=== PATIENT | female | born 1955 | race Caucasian/White ===

== ENCOUNTER 2017-05-05 11:58 | Emergency (ER) | payer OTHER ==
[2017-05-05] MEDS ORDERED: DEXAMETHASONE 10 MG/ML VIAL PO STA (12:21)
--- NOTE | 2017-05-05 12:26 | ED Physician Documentation ---
PD HPI BACK PAIN - Stated complaint Stated Complaint: BILAT LEG PX - Chief complaint Chief Complaint: Back Pain - History obtained from History obtained from: Patient, Family - History of Present Illness Timing - onset: How many months ago (10) Timing - duration: Months (10) Timing - details: Abrupt onset, Still present Location: Lower Quality: Pain, Sharp Associated symptoms: No: Fever, Weakness, Numbness, Incontinent of urine, Unable to urinate, Hematuria, Incontinent of stool Improves with: Rest, Position Worsened by: Movement Similar symptoms before: Diagnosis (sciatica) Recently seen: Not recently seen - Additional information Additional information: 61-year-old female has had symptoms of pain down the backside of both of her legs for the past 10 months. She has been on some Vicodin previously she has been on some gabapentin she feels that she is not having any improvement in her symptoms and she is a bit frustrated. She has been to physical therapy. She has not had any advanced imaging. Review of Systems Constitutional: denies: Fever Eyes: denies: Decreased vision Ears: denies: Ear pain Nose: denies: Congestion Throat: denies: Sore throat Cardiac: denies: Chest pain / pressure Respiratory: denies: Dyspnea, Cough GI: denies: Abdominal Pain, Nausea, Vomiting : denies: Dysuria, Frequency Skin: denies: Rash Musculoskeletal: reports: Extremity pain. 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 HEENT: Myringotomy (tubes) - Present Medications Home Medications: Ambulatory Orders Medication Instructions Recorded Confirmed Calcium Carbonate/Vitamin D3 2 tab ORAL DAILY 10/06/14 03/26/15 [Calcium + Vitamin D Tablet] Escitalopram Oxalate [Lexapro] 10 mg ORAL DAILY 10/06/14 03/26/15 Levothyroxine [Synthroid] 50 mcg ORAL DAILY 10/06/14 03/26/15 Meloxicam [Mobic] 15 mg ORAL DAILY 10/06/14 03/26/15 Aspirin [Aspir 81] 81 mg PO DAILY 03/26/15 03/26/15 Fexofenadine HCl 1 tab PO DAILY 03/26/15 03/26/15 Simvastatin 10 mg PO DAILY 03/26/15 03/26/15 Gabapentin 100 mg PO TID 05/05/17 - Allergies Allergies/Adverse Reactions: Allergies Allergy/AdvReac Type Severity Reaction Status Date / Time Penicillins Allergy Rash Verified 05/05/17 12:07 - Social History Does the pt smoke?: No Smoking Status: Never smoker Does the pt drink ETOH?: Yes Does the pt have substance abuse?: No - Immunizations Immunizations are current?: Yes - POLST Patient has POLST: No PD ED PE NORMAL - Vitals Vital signs reviewed: Yes (Hypertensive) - General General: Alert and oriented X 3, No acute distress, Well developed/nourished - HEENT HEENT: Atraumatic, PERRL, EOMI - Neck Neck: Supple, no meningeal sign - Respiratory Respiratory: No respiratory distress - Back Back: No CVA TTP, No spinal TTP - Derm Derm: Normal color, Warm and dry, No rash - Extremities Extremities: No deformity, No edema - Neuro Neuro: No motor deficit, No sensory deficit Eye Opening: Spontaneous Motor: Obeys Commands Verbal: Oriented GCS Score: 15 - Psych Psych: Normal mood, Normal affect Results - Vitals Vitals: Vital Signs - 24 hr 05/05/17 12:03 Temperature 36.6 C Heart Rate 87 Respiratory 16 Rate Blood Pressure 184/110 H O2 Saturation 100 Oxygen O2 Source Room air PD MEDICAL DECISION MAKING - ED course Complexity details: reviewed old records, considered differential, d/w patient, d/w family ED course: 61-year-old female with a history of sciatica has pain down the back of both of her legs that she is frustrated with and she wants some steroid. She is administered dexamethasone 10 mg orally. I discussed with her the natural history of sciatica and disc disease and spine disease and recommended that she get an MRI done of her back with the thought that she may need epidural steroid injection.I have encouraged her to continue her physical therapy. Departure - Departure Disposition: 01 Home, Self Care Clinical Impression: Sciatica Qualifiers: Laterality: bilateral Qualified Code(s): M54.31 - Sciatica, right side; M54.32 - Sciatica, left side; M54.32 - Sciatica, left side Instructions: ED Sciatica Follow-Up: Nanette Jefferson MD [Primary Care Provider] - Comments: Talk to your primary care doctor about getting an MRI of your back. Today in the Emergency Department your blood pressure was elevated. This can happen from the stress of the visit itself, from a current illness or circumstance or from uncontrolled hypertension. If you take blood pressure medications take your usual mediations, have your blood pressure re-checked in an appropriate setting and follow up any elevation with your primary care doctor.
[2017-05-05 12:33] VITALS: BP 174/98
== END 2017-05-05 12:32 | disposition home or self-care (01) ==
LOC: ED 11:58
DX: M54.31 Sciatica, right side (principal); M54.32 Sciatica, left side; R03.0 Elevated blood-pressure reading, without diagnosis of hypertension; E78.00 Pure hypercholesterolemia, unspecified
CPT/HCPCS: 99283

== ENCOUNTER 2017-05-26 14:57 | Outpatient (CLI) | payer OTHER ==
--- NOTE | 2017-05-27 12:48 | MRI Report ---
EXAM: MRI LUMBAR SPINE WITHOUT CONTRAST EXAM DATE: 05/26/2017 03:44 PM. CLINICAL HISTORY: Lumbar radiculopathy. Low back pain radiating to the posterior thighs and knees. COMPARISON: None. TECHNIQUE: Multiplanar, multisequence T1-weighted and fluid-sensitive sequences of the lumbar spine f rom T12 to S1 without contrast. Other: None. FINDINGS: Spinal Cord: The conus terminates at L1. The conus medullaris and cauda equina are unremarkable. Alignment: No scoliosis or spondylolisthesis. Bone Marrow: Five [id number] lumbar vertebral bodies are assumed. No gross fractures or bone les ions. No bone marrow edema. Disk Levels/Facets: T11-t12: Unremarkable. T12-l1: Unremarkable. L1-L2: Unremarkable. L2-L3: A small left foraminal area protrusion results in minimal foraminal narrowing. L3-L4: Mild bilateral facet osteoarthritis and foraminal area protrusions result in mild bilateral fo raminal narrowing. L4-L5: The disk is desiccated with mild height loss. A broad-based disk bulge, severe ligamentum flav um hypertrophy, and severe facet hypertrophy result in moderate spinal canal, mild right foraminal, a nd severe left foraminal narrowing. The facet joints are mildly widened and contain moderate effusion s. L5-S1: Mild bilateral facet osteoarthritis has no neurologic consequence. Incidentally noted are extr aarticular peripheral synovial cysts. Musculature: Normal. No edema or fatty atrophy. Other: The partially visualized retroperitoneum is unremarkable. IMPRESSION: 1. Mild bilateral foraminal narrowing at L3-L4 due to disk and posterior element degenerative changes . 2. Moderate spinal canal, mild right foraminal, and severe left foraminal narrowing at L4-L5 due to d isk and posterior element degenerative changes. Comment: The following findings are so common in adults without low back pain that while we report th eir presence, they must be interpreted with caution and in the context of the clinical situation. (Re michi Cummings et al, Spine 2001) Prevalence of findings in patients without low back pain: Disk degeneration (any evidence): 92% Disk desiccation/T2 signal loss: 83% Disk height loss: 56% Disk bulge: 64% Disk protrusion: 32% Annular tear/high intensity zone: 38% [facility] Referring Provider Line: [phone] SITE ID: [id number]
== END 2017-05-26 14:58 | disposition home or self-care (01) ==
LOC: DI 14:57
PROVIDERS: ATTEND Physician Assistant Medical
DX: M51.26 Other intervertebral disc displacement, lumbar region (principal); M51.36 Other intervertebral disc degeneration, lumbar region; M47.896 Other spondylosis, lumbar region
CPT/HCPCS: 72148

== ENCOUNTER 2019-02-21 15:57 | Emergency (ER) | payer OTHER ==
[2019-02-21 16:04] VITALS: BP 141/67
--- NOTE | 2019-02-21 16:16 | ED Physician Documentation ---
History of Present Illness - Stated complaint Stated Complaint: LT FOOT INJURY - Chief complaint Chief Complaint: Ext Problem - History obtained from History obtained from: Patient - History of Present Illness Timing: How many days ago (5) Pain level max: 4 Pain level now: 4 - Additonal information Additional information: 63-year-old female states that she was [place] [employer] [place] earlier today, had an x- ray of her left foot after an injury approximately 5 days ago. She states that they told her left fourth toe is dislocated in her left fifth toe is fractured. She was sent here to have her toe "reduced". 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 HEENT: Myringotomy (tubes) - Present Medications Home Medications: Ambulatory Orders Medication Instructions Recorded Confirmed Calcium Carbonate/Vitamin D3 2 tab ORAL DAILY 10/06/14 03/26/15 [Calcium + Vitamin D Tablet] Escitalopram Oxalate [Lexapro] 10 mg ORAL DAILY 10/06/14 03/26/15 Levothyroxine [Synthroid] 50 mcg ORAL DAILY 10/06/14 03/26/15 Meloxicam [Mobic] 15 mg ORAL DAILY 10/06/14 03/26/15 Aspirin [Aspir 81] 81 mg PO DAILY 03/26/15 03/26/15 Fexofenadine HCl 1 tab PO DAILY 03/26/15 03/26/15 Simvastatin 10 mg PO DAILY 03/26/15 03/26/15 Gabapentin 100 mg PO TID 05/05/17 - Allergies Allergies/Adverse Reactions: Allergies Allergy/AdvReac Type Severity Reaction Status Date / Time Penicillins Allergy Rash Verified 02/21/19 16:00 - Social History Does the pt smoke?: No Smoking Status: Never smoker Does the pt drink ETOH?: Yes Does the pt have substance abuse?: No - Immunizations Immunizations are current?: Yes - POLST Patient has POLST: No PD ED PE NORMAL - Vitals Vital signs reviewed: Yes - General General: Alert and oriented X 3, No acute distress - HEENT HEENT: Moist mucous membranes - Neck Neck: Supple, no meningeal sign - Derm Derm: Warm and dry - Extremities Extremities: Other (L foot - Ecchymosis and swelling to the left fifth toe. There is mild deformity to the left fourth toe. Neurovascular intact. Also has mild bruising over the dorsum of the foot.) - Neuro Neuro: Alert and oriented X 3 Results - Vitals Vitals: Vital Signs - 24 hr 02/21/19 16:00 Temperature 36.8 C Heart Rate 80 Respiratory 14 Rate Blood Pressure 141/67 H O2 Saturation 98 Oxygen O2 Source Room air - Rads (name of study) L foot xray Radiology: Prelim report reviewed, EMP read contemporaneously, See rad report (Acute horizontal fracture seen at the fifth proximal phalanx through the meta- epiphysis with mild lateral angulation. Adjacent soft tissue swelling. ) Procedures - Reduction Body part reduced: Left, Toe Fracture or dislocation: Dislocation Reduction aftercare: NV intact, Xray confirms reduction, Patient tolerated well PD MEDICAL DECISION MAKING - ED course Complexity details: reviewed results, re-evaluated patient, considered differential, d/w patient ED course: Patient presents to the emergency department with a fractured left fifth toe. She also had a dislocated fourth toe that was reduced upon arrival to the emergency department. Tolerated well. No further dislocation present on x-ray. Placed in a postop shoe for comfort. Patient counseled regarding signs and symptoms for which I believe and urgent re-evaluation would be necessary. Patient with good understanding of and agreement to plan and is comfortable going home at this time This document was made in part using voice recognition software. While efforts are made to proofread this document, sound alike and grammatical errors may occur. Departure - Departure Disposition: 01 Home, Self Care Clinical Impression: Fracture of fifth toe, left, closed Qualifiers: Encounter type: initial encounter Qualified Code(s): S92.502A - Displaced unspecified fracture of left lesser toe(s), initial encounter for closed fracture Dislocation of toe, closed Qualifiers: Encounter type: initial encounter Laterality: left Qualified Code(s): S93.105A - Unspecified dislocation of left toe(s), initial encounter Condition: Good Instructions: ED Dislocation Toe, ED Fx Toe Closed Follow-Up: Potswald,Kasandra D, ANDREA [Primary Care Provider] - Within 1 week Comments: Return if you worsen. Wear the postop shoe for comfort. Follow-up with your doctor in 1 week for repeat evaluation. Discharge Date/Time: 02/21/19 17:09
--- NOTE | 2019-02-21 17:01 | XRAY Report ---
Reason: pain Procedure Date: 02/21/2019 Accession Number: [id number] / [id number] Procedure: XR - Foot 3 View LT CPT Code: Final Report FULL RESULT: EXAM: LEFT FOOT RADIOGRAPHY EXAM DATE: 02/21/2019 04:29 PM. CLINICAL HISTORY: Left foot pain. COMPARISON: None. TECHNIQUE: 3 views. FINDINGS: Bones: Acute horizontal fracture seen at the fifth proximal phalanx through the meta-epiphysis with mild lateral angulation. Adjacent soft tissue swelling. Joints: No dislocation. IMPRESSION: Acute horizontal fracture seen at the fifth proximal phalanx through the meta-epiphysis with mild lateral angulation. Adjacent soft tissue swelling. [facility]
== END 2019-02-21 17:09 | disposition home or self-care (01) ==
LOC: ED 15:57
DX: S92.512A Displaced fracture of proximal phalanx of left lesser toe(s), initial encounter for closed fracture (principal); S93.105A Unspecified dislocation of left toe(s), initial encounter; X58.XXXA Exposure to other specified factors, initial encounter; Z79.82 Long term (current) use of aspirin
CPT/HCPCS: 28515

== ENCOUNTER 2019-09-19 11:36 | Emergency (ER) | payer OTHER ==
[2019-09-19] MEDS ORDERED: TETANUS/DIPHTHERIA/PERTUSSIS 0.5 ML SYRINGE IM ONE (12:08)
--- NOTE | 2019-09-19 12:18 | ED Physician Documentation ---
PD HPI UPPER EXT INJURY - Stated complaint Stated Complaint: LT ARM LAC - Chief complaint Chief Complaint: Laceration - History obtained from History obtained from: Patient (She accidentally stabbed her left, nondominant forearm while opening a box with a razor at home just prior to arrival. 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 HEENT: Myringotomy (tubes) - Present Medications Home Medications: Ambulatory Orders Medication Instructions Recorded Confirmed Calcium Carbonate/Vitamin D3 2 tab ORAL DAILY 10/06/14 03/26/15 [Calcium + Vitamin D Tablet] Escitalopram Oxalate [Lexapro] 10 mg ORAL DAILY 10/06/14 03/26/15 Levothyroxine [Synthroid] 50 mcg ORAL DAILY 10/06/14 03/26/15 Meloxicam [Mobic] 15 mg ORAL DAILY 10/06/14 03/26/15 Aspirin [Aspir 81] 81 mg PO DAILY 03/26/15 03/26/15 Fexofenadine HCl 1 tab PO DAILY 03/26/15 03/26/15 Simvastatin 10 mg PO DAILY 03/26/15 03/26/15 Gabapentin 100 mg PO TID 05/05/17 - Allergies Allergies/Adverse Reactions: Allergies Allergy/AdvReac Type Severity Reaction Status Date / Time Penicillins Allergy Rash Verified 09/19/19 11:49 - Social History Does the pt smoke?: No Smoking Status: Never smoker Does the pt drink ETOH?: Yes Does the pt have substance abuse?: No - Immunizations Immunizations are current?: Yes - POLST Patient has POLST: No PD ED PE NORMAL - Vitals Vital signs reviewed: Yes - General General: Alert and oriented X 3, No acute distress - Extremities Extremities: Other (There is a 2 cm laceration, parallel to the left forearm right in the middle of the forearm several centimeters proximal to the wrist without distal neurovascular or tendon compromise.) - Neuro Neuro: Alert and oriented X 3, Normal speech Results - Vitals Vitals: Vital Signs - 24 hr 09/19/19 11:42 Temperature 36.8 C Heart Rate 66 Respiratory 18 Rate Blood Pressure 145/74 H O2 Saturation 99 Oxygen O2 Source Room air Procedures - Laceration (location) Left forearm Length in cm: 2 Wound type: Linear, Into subcut fat Neurovascular status: Sensory intact, Motor intact, Vascular intact Tendon involvement: Tendon intact. No: Tendon Injury Anesthesia: Lidocaine 1% with epi Wound Preparation: Irrigated copiously NS Skin layer closure: Nylon, Interrupted, Size #-0 - enter number (4-0), Sutures - enter # (5) Other: Patient tolerated well, No complications, Neurovascular intact, Tetanus booster given Complexity: Simple Departure - Departure Disposition: 01 Home, Self Care Clinical Impression: Laceration Condition: Good Record reviewed to determine appropriate education?: Yes Instructions: ED Laceration All Comments: Come back for any signs of infection which would include: Redness, swelling, drainage, increased pain, or fevers. You can wash it soap and water. Keep it covered and moist with bacitracin ointment which is available over the counter; avoid neosporin. Follow-up with your physician in about 14 days for suture removal.
[2019-09-19 12:21] VITALS: BP 142/65
== END 2019-09-19 12:28 | disposition home or self-care (01) ==
LOC: ED 11:36
DX: S51.812A Laceration without foreign body of left forearm, initial encounter (principal); W27.8XXA Contact with other nonpowered hand tool, initial encounter; Y93.89 Activity, other specified; Y92.009 Unspecified place in unspecified non-institutional (private) residence as the place of occurrence of the external cause; Z23 Encounter for immunization; I10 Essential (primary) hypertension; Z79.82 Long term (current) use of aspirin
CPT/HCPCS: 12001; 90471; 99281; 99282